=== PATIENT | male | born 1955 | race Caucasian/White ===

== ENCOUNTER → 2018-12-10 07:58 | Outpatient (CLI) | payer SELFPAY ==
[2018-12-02 16:03] LABS: Bacteria 0 SEEN /hpf (None Seen); Red Blood Cells-Urine 0 SEEN /hpf (0-5); White Blood Cells 0 SEEN /hpf (0-5)
[2018-12-02 16:48] LABS: Vitamin D,25 Hydroxy 35.3 ng/mL (29.95-100.01)
[2018-12-02 16:49] LABS: ALB/GLOB Ratio 0.8 RATIO (0.9-2.4); AST(SGOT) 26 U/L (15-37); Alanine Aminotransfer ALT/SGPT 38 U/L (16-61); Albumin, Serum 3.4 g/dL (3.2-5.0); Alkaline Phosphatase 115 U/L (45-117); Anion Gap 5 (5-15); BUN 19 mg/dL (7-18); BUN/Creat Ratio 20.3 RATIO (10-20); Calcium,Total 8.6 mg/dL (8.5-10.1); Chloride 106 mmol/L (98-107); Cholesterol 148 mg/dL (200); Creatinine, Serum 0.94 mg/dL (0.70-1.30); EST Glomerular Filtration Rate 87 mL/min (>60); Est Glom Filt Rate - Afr Amer 105 mL/min (>60); Globulin 4.2 g/dL (2.2-4.2); Glucose 84 mg/dL (74-106); High Density Lipoprotein 50 mg/dL; PSA,Total - Annual Screen 0.44 ng/mL (0.00-4.00); Protein, Total 7.6 g/dL (6.4-8.2); Sodium Level 140 mmol/L (136-145); Thyroid Stim Hormone (TSH) 0.97 uIU/mL (0.358-3.74); Triglycerides 60 mg/dL; Very Low Density Lipoprotein 12 mg/dL (5-40)
[2018-12-02 16:57] LABS: Color, Urine Yellow (Yellow); Glucose, Dipstick Normal (Normal); Hematocrit 43.9 % (40-54); Hemoglobin 14.7 g/dl (13.0-16.5); Ketone-Dipstick Negative (Negative); Leukocyte Esterase-Dipstick Negative /ul (Negative); Mean Corp Hgb Conc 33.5 g/gl (32-36); Mean Corpuscular Hgb 29.5 pg (27.0-32.0); Mean Corpuscular Volume 88.2 fL (80-94); Mean Platelet Vol. 9.2 fl (6.2-12.0); Nitrite-Dipstick Negative (Negative); Occult Blood-Urine Negative /ul (Negative); Platelet Count 275 K/mm3 (150-450); Protein-Dipstick Negative (Negative); RBC Distribution Width CV 13.6 % (11.6-14.6); RBC Distribution Width SD 43.3 fl (35.1-43.9); Red Blood Count 4.98 M/mm3 (4.6-6.2); Specific Gravity, Urine 1.025 (1.002-1.030); Urine Bilirubin Dipstick Negative (Negative); Urine Clarity Clear (Clear); Urine Urobilinogen Normal (Normal); White Blood Count 6.7 K/mm3 (4.4-11.0)
[2018-12-02 16:59] LABS: Scan Indicated on CBC? Y/N NO
[2018-12-02 17:10] LABS: Mucous, Urine RARE /hpf (<or=2+); Squamous Epithelial Cells - UA 0-5 SEEN /hpf (0-5)
[2018-12-02 17:12] LABS: Hemoglobin A1c 5.8 % (4.2-6.3)
[2018-12-02 19:13] LABS: Homocysteine 10.9 umol/L (3.2-10.7)
--- NOTE | 2018-12-10 08:00 | EKG12_ITS ---
Test Reason : EXEC PHYS Blood Pressure : / mmHG Vent. Rate : 059 BPM Atrial Rate : 059 BPM P-R Int : 180 ms QRS Dur : 098 ms QT Int : 398 ms P-R-T Axes : 060 054 050 degrees QTc Int : 394 ms Sinus bradycardia with marked sinus arrhythmia Otherwise normal ECG Confirmed by HILL VILLEGAS, RAZA ([id number]), social media editor ASIM ALVARADO ([id number]) on 12/14/2018 1:48:42 PM Referred By: Angela Pacheco Confirmed By:RAZA ALEJANDRE MD
--- NOTE | 2018-12-10 19:28 | BFS_ITS ---
Reason For Study: Screening Carotid Duplex Ultrasound Abdominal Aorta The right maximum ICA velocity is 89.1/35.6 cm/s. The maximal outside diameter of the proximal aorta The left maximum ICA velocity is 98.2/33 cm/s. measures 1.75 x 1.77 cm in the cross-sectional The right ECA velocity is less than 125 cm/s. axis. The left ECA velocity is less than 125 cm/s. The maximal outside diameter of the proximal aorta There is insignificant plaque formation noted on measures 1.71 cm in the longitudinal axis. the right side. There is no plaque formation noted on the left side. Interpretation Summary Normal carotid artery screening (0 to 15% narrowing). Normal aortic ultrasound exam. Performed By: Desirae Saldivar RVT
== END ==
PROVIDERS: Family Provider Family Medicine; PCP Family Medicine; Referring Provider Internal Medicine; Visit Provider Internal Medicine
DX: Z00.00 Encounter for general adult medical examination without abnormal findings (principal)
CPT/HCPCS: 36415; 80053; 80061; 81001; 82306; 83036; 83090; 84153; 84443; 85027; 93005; G0103

== ENCOUNTER → 2019-01-06 16:20 | Outpatient (CLI) | payer OTHER, SELFPAY ==
[2018-12-10 13:33] VITALS: BMI 32.8
--- NOTE | 2019-01-06 16:25 | RAD_ITS ---
STUDY: X-RAY - LEFT FOOT CLINICAL: Male, 63 years old. Foot pain. No known injury. TECHNIQUE: 3 view(s) of the foot. COMPARISON: None. FINDINGS: There is an inferior calcaneal spur. There is a mild pes planus deformity. Normal metatarsi. There is mild arthrosis of the MTP and IP joints with hammertoe deformities of the second through fifth toes. The soft tissue structures are unremarkable. RAD/Foot min 3 Views IMPRESSION: Osteoarthritic changes. Pes planus deformity. No acute finding. Electronically Signed: Prakash Hogan MD at 11:06 EDT , Service support ,
== END ==
PROVIDERS: Family Provider Nurse Practitioner Primary Care; PCP Nurse Practitioner Primary Care; Referring Provider Podiatrist; Visit Provider Podiatrist
DX: M67.962 Unspecified disorder of synovium and tendon, left lower leg (principal)
CPT/HCPCS: 73630

== ENCOUNTER → 2020-04-15 09:00 | Outpatient (CLI) | payer OTHER, SELFPAY ==
[2018-12-10 13:33] VITALS: BMI 32.8
== END ==
PROVIDERS: PCP Nurse Practitioner Primary Care; Referring Provider Physician Assistant; Visit Provider Physician Assistant
DX: Z11.59 Encounter for screening for other viral diseases (principal)
CPT/HCPCS: 87635; C9803; U0003